=== PATIENT | male | born 1980 | race Caucasian/White ===

== ENCOUNTER 2018-03-21 23:00 | Emergency (ER) | payer OTHER ==
[2018-03-21 23:04] VITALS: BP 142/87
--- NOTE | 2018-03-21 23:36 | EDPHY ---
H & P Stated Complaint: left thumb injury Time Seen by Provider: 03/21/18 23:06 HPI/ROS: HPI: The patient presents with left thumb pain which has been present for the last several hours. 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 His thumb got caught in her skirt, and the weight of her body fell down onto his left thumb. He has pain ever since, worse with movement of his thumb. He denies any numbness or tingling. The pain is achy and mostly at the proximal aspect of his thumb. REVIEW OF SYSTEMS 10 systems were reviewed and negative with the exception of the elements mentioned in the history of present illness. PMHx: Healthy TRAUMA PHYSICAL General Appearance: Alert, no distress Head: Atraumatic Respiratory: Breathing comfortably Skin: No lacerations, No abrasion Extremities: Left thumb is nontender to palpation, there is pain at the thenar eminence with slight edema, there is no anatomic snuffbox tenderness, there is some pain with axial loading of the thumb Neurological: A&Ox3, GCS=15,normal motor function with 5/5 strength in all 4 extremities, normal sensory exam Source: Patient Exam Limitations: No limitations - Personal History Current Tetanus/Diphtheria Vaccine: Yes Current Tetanus Diphtheria and Acellular Pertussis (TDAP): Yes - Medical/Surgical History Hx Asthma: No Hx Chronic Respiratory Disease: No Hx Diabetes: No Hx Cardiac Disease: No Hx Renal Disease: No Hx Cirrhosis: No Hx Alcoholism: No Hx HIV/AIDS: No Hx Splenectomy or Spleen Trauma: No Other PMH: left knee surgery - Social History Smoking Status: Never smoked Constitutional: Initial Vital Signs Temperature (C) 36.8 C 03/21/18 23:02 Heart Rate 72 03/21/18 23:02 Respiratory Rate 16 03/21/18 23:02 Blood Pressure 142/87 H 03/21/18 23:02 O2 Sat (%) 95 03/21/18 23:02 O2 Delivery Mode Room Air Allergies/Adverse Reactions: No Known Allergies Allergy (Unverified 03/21/18 23:04) Home Medications: Medication Instructions Recorded NK [No Known Home Meds] 03/21/18 Medical Decision Making - Diagnostics Imaging Results: Imaging Impressions Hand X-Ray 03/21/18 23:08 Impression: No fracture of the left hand. Imaging: I viewed and interpreted images myself Procedures: SPLINT Procedure: Splint placement. A Velcro thumb spica splint was applied to the left arm by the tech. After application of the splint I returned and re-examined the patient. The splint was adequately immobilizing the joint and distal to the splint the patient's circulation and sensation was intact. Differential Diagnosis: This is a 37-year-old healthy male who presents with left thumb injury during a performance today. X-rays are obtained and are unremarkable. He does have some tenderness at the base of the thumb and pain with axial loading though no anatomic snuffbox tenderness. I will place him in a thumb spica splint. I have told him that if he continues to have pain in the next 1 week he will need repeat x-rays to evaluate for scaphoid fracture. He is happy with this plan. Departure - Departure Disposition: Home, Routine, Self-Care Clinical Impression: Injury of thumb, left Condition: Good Instructions: Scaphoid Fracture (ED), R.I.C.E. Treatment (ED) Additional Instructions: Your x ray today shows no clear fracture. However, we do not always see a fracture on the day of the injury. You should wear the splint until your pain improves. If you continue to have pain for 1 week, you should follow up with Dr. Rutledge for a repeat x ray to make sure that you do not have a scaphoid fracture of your hand, which can be serious. Referrals: Baljeet Rutledge MD [Medical Doctor] - As per Instructions
== END 2018-03-21 23:43 | disposition home or self-care (01) ==
DX: S69.92XA Unspecified injury of left wrist, hand and finger(s), initial encounter (principal); W23.0XXA Caught, crushed, jammed, or pinched between moving objects, initial encounter; Y92.254 Theater (live) as the place of occurrence of the external cause; Y93.89 Activity, other specified; Y99.0 Civilian activity done for income or pay
CPT/HCPCS: L3807